=== PATIENT | male | born 1960 | race Asian ===

== ENCOUNTER 2019-04-03 08:39 | Day surgery (SDC) | payer OTHER ==
[~2019-04-03] VITALS: Ht 160 cm; Wt 67.1 kg
[2019-04-03] VITALS (10 sets, daily range): BP systolic 116–138; BP diastolic 64–80
[~2019-04-03 08:39] MED LIST: LR 1000ml 1,000 ML IVLG SCH
--- NOTE | 2019-04-03 08:45 | Anethesia Preoperative Eval ---
Anesthesia Pre-op PMH/ROS General Date of Evaluation: Apr 03, 2019 Time of Evaluation: 08:45 Anesthesiologist: rubio ASA Score: ASA 2 Mallampati Score Class I : Soft palate, uvula, fauces, pillars visible Class II: Soft palate, uvula, fauces visible Class III: Soft palate, base of uvula visible Class IV: Only hard plate visible Mallampati Classification: Class II Surgeon: mrery Diagnosis: abdominal pain, colon screening Surgical Procedure: egd/colonoscopy Anesthesia History: none Social History: smoking - nonsmoker Family History: no anesthesia problems Allergies: Coded Allergies: No Known Allergies (Unverified , 04/03/19) Medications: see eMAR Patient NPO?: Yes Past Medical History Gastrointestinal/Genitourinary: Reports: GERD Musculoskeletal/Integumentary: Reports: other - joint pain PSxH Narrative: breast sx Anesthesia Pre-op Phys. Exam Physician Exam Last Vital Signs Date Time Temp Pulse Resp B/P (MAP) Pulse Ox O2 Delivery O2 Flow Rate FiO2 04/03/19 09:28 Room Air 04/03/19 09:14 97.8 63 18 135/68 99 Constitutional: NAD Neurologic: CN 2-12 intact Cardiovascular: RRR Respiratory: CTA Gastrointestinal: S/NT/ND Airway Exam Mallampati Score: Class II MO: limited Neck: flexible TMD: 2fb ROM: limited Anesthesia Pre-op A/P Risk Assessment & Plan Assessment: asa2 Plan: mac Status Change Before Surgery: No Pre-Antibiotics Drug: Allyson Echeverria MD Apr 03, 2019 08:45
[2019-04-03] MEDS ORDERED: NKM (09:35)
[2019-04-03] MEDS ORDERED: LR 1000ml 1,000 ML IVLG SCH (09:57)
[2019-04-03] MEDS ORDERED: Propofol 200mg/20ml IV ONE (10:00)
[2019-04-03] MEDS ORDERED: Lidocaine 1% MPF 10mg/ml 5ml ONE (10:00)
[2019-04-03] MEDS ORDERED: LR 1000ml ONE (10:00)
[2019-04-03] MEDS ORDERED: DiphenhydrAMINE 50mg/ml Inj IVP PRN (10:00)
[2019-04-03] MEDS ORDERED: Atropine Inj 1mg/10ml Syr IV PRN (10:00)
[2019-04-03] MEDS ORDERED: Midazolam 2mg/2ml Inj IVP PRN (10:00)
[2019-04-03] MEDS ORDERED: fentaNYL 100 mcg/2 mL IV PRN (10:00)
--- NOTE | 2019-04-03 10:03 | Pre-Procedure Note/Attestation ---
Pre-Procedure Note/Attestation Complete Prior to Procedure Planned Procedure: not applicable Procedure Narrative: esophagogastroduodenoscopy and colonoscopy Indications for Procedure Pre-Operative Diagnosis: screening colon, GERD Attestation I attest that I discussed the nature of the procedure; its benefits; risks and complications; and alternatives (and the risks and benefits of such alternatives ), prior to the procedure, with the patient (or the patient's legal medical service representative). I attest that, if there was a reasonable possibility of needing a blood transfusion, the patient (or the patient's legal medical service representative) was given the [facility] standardized written summary, pursuant to the [place] Blood Safety Act ([place] Health and Safety Code # 1645, as amended). I attest that I re-evaluated the patient just prior to the surgery and that there has been no change in the patient's H&P, except as documented below: Ghulam Marmolejo MD Apr 03, 2019 10:03
--- NOTE | 2019-04-03 10:04 | Short Stay Surgery H&P ---
History of Present Illness History of Present Illness Chief Complaint screening colon, GERD HPI Christos Anne is a 58 year old male who was admitted on for Abdominal Pain, Colon Screening Patient History Allergies: Coded Allergies: No Known Allergies (Unverified , 04/03/19) PAST MEDICAL HISTORY: (1) GERD (gastroesophageal reflux disease) Medication History Scheduled No Known Medications* (NKM - No Known Medications*), 0 ., (Reported) Review of Systems Cardiovascular: Reports: no symptoms Respiratory: Reports: no symptoms Skeletal: Reports: no symptoms Gastrointestinal: Reports: no symptoms Genitourinary: Reports: no symptoms Neurologic: Reports: no symptoms Endocrine: Reports: no symptoms Hematologic: Reports: no symptoms Physical Exam Vital Signs Last Vital Signs Date Time Temp Pulse Resp B/P (MAP) Pulse Ox O2 Delivery O2 Flow Rate FiO2 04/03/19 09:28 Room Air 04/03/19 09:14 97.8 63 18 135/68 99 Skin: normal HENT: normal Heart: normal Lungs: normal Abdomen: normal Extremities: normal Plan Plan of Care esophagogastroduodenoscopy and colonoscopy Attestation Are the patient's medical conditions optimized for surgery? Attestation Response: yes Ghulam Marmolejo MD Apr 03, 2019 10:04
--- NOTE | 2019-04-03 10:37 | Endoscopy Procedure Note ---
Endoscopy Procedure Note General Indication for Procedure: screening colon, GERD Procedures Performed: EGD, colonoscopy Operative Findings/Diagnosis: colon polyp, gastrtiis Specimen: yes Pt Tolerated Procedure Well: Yes Estimated Blood Loss: none Anesthesia Anesthesiologist: janiya Anesthesia: MAC Inserted Devices Implant(s) used?: No Quality Quality of Bowel Preparation: Good Did scope reach the cecum?: Yes Was there any complications?: No GI Core Measures 50 yrs or older w/o bx or poly: No 10yrs. F/U recommended: Yes If not recommended, why?: Above average risk 18 years or older w/prev. colo: No Ghulam Marmolejo MD Apr 03, 2019 10:37
--- NOTE | 2019-04-03 10:53 | Immediate Post-Op Evaluation ---
Immediate Post-Op Evalulation Immediate Post-Op Evalulation Procedure: egd/colonoscopy w/bx Date of Evaluation: Apr 03, 2019 Time of Evaluation: 10:52 IV Fluids: 500ml lr Blood Products: none Estimated Blood Loss: negligible Blood Pressure Systolic: 116 Blood Pressure Diastolic: 74 Pulse Rate: 54 Respiratory Rate: 18 O2 Sat by Pulse Oximetry: 100 Temperature (Fahrenheit): 97.7 Pain Score (1-10): 0 Nausea: No Vomiting: No Complications none Patient Status: awake, reacts, patent Hydration Status: adequate Drug: Allyson Echeverria MD Apr 03, 2019 10:53
--- NOTE | 2019-04-03 10:55 | 48 Hour Post Anesthesia Eval ---
Post Anesthesia Evaluation Procedure: egd/colonoscopy w/bx Date of Evaluation: Apr 03, 2019 Time of Evaluation: 10:54 Blood Pressure Systolic: 118 0: 76 Pulse Rate: 63 Respiratory Rate: 18 Temperature (Fahrenheit): 97.9 O2 Sat by Pulse Oximetry: 100 Airway: patent Nausea: No Vomiting: No Pain Intensity: 0 Hydration Status: adequate Cardiopulmonary Status: stable Mental Status/LOC: patient returned to baseline Post-Anesthesia Complications: none Follow-up care needed: N/A Allyson Sweet MD Apr 03, 2019 10:55
--- NOTE | 2019-04-03 16:15 | Procedure Note ---
DATE OF PROCEDURE: 04/03/2019 SURGEON: Ghulam Marmolejo M.D. PROCEDURE: Upper endoscopy with biopsy and colonoscopy with biopsy. ANESTHESIA: Per Dr. Wells. INSTRUMENT: Olympus adult flexible upper endoscope and colonoscope. INDICATION: 1. Screening colonoscopy evaluation. 2. Chronic GERD. REASON FOR PROCEDURE: The procedure, risks, benefits, and possible consequences, including hemorrhage, aspiration, perforation and infection, and alternative treatments, were explained to the patient/legal guardian by Dr. Ghulam Marmolejo and the patient/legal guardian understood and accepted these risks. PROCEDURE IN DETAIL: After informed consent was obtained and the patient was adequately sedated, Olympus upper endoscope was advanced from the mouth into second portion of duodenum and retroflexion was performed in the stomach. GE junction was found to be about 35 cm from the incisors. There was no any evidence of any esophagitis or esophageal mass. In the stomach, there was diffuse gastritis. Random biopsies from antrum and body was obtained to rule out H. pylori infection. Also, the patient had a small polyp or nodule in the prepyloric region at about 7 o'clock position. This was removed with cold biopsy forceps technique. At this time, the upper endoscope was retrieved and the patient was turned over for colonoscopy. First, rectal exam was performed, which was normal. Then, the scope was the advanced from the rectum into cecum documented by appendiceal orifice, ileocecal valve, and right upper quadrant palpation. Then scope subsequent was passed into the terminal ileum. The quality of prep was good. The patient had one polyp in the cecum measured roughly about 3 mm, removed with cold biopsy forceps technique. There was 1 or 2 scattered diverticula in the ascending colon. There was no further polyp seen in this colonoscopy examination. No obvious mass was seen. Retroflexion of rectum showed evidence of small nonbleeding internal hemorrhoids. SUMMARY OF FINDINGS: 1. Gastritis, status post biopsy. 2. One gastric nodule/polyp was removed, see above for details. 3. One colonic polyp. 4. Diverticulosis in the right colon. 5. Internal hemorrhoids. RECOMMENDATIONS: 1. Follow up pathology and treat accordingly. 2. We recommend repeat colonoscopy in 5 years. Ghulam Harry Marmolejo DR: Gold JOB#: [id number] CC:
== END 2019-04-03 12:05 | disposition home or self-care (01) ==
LOC: GAS 08:39
DX: Z12.11 Encounter for screening for malignant neoplasm of colon (principal); K21.9 Gastro-esophageal reflux disease without esophagitis; K63.5 Polyp of colon; K31.7 Polyp of stomach and duodenum; K57.90 Diverticulosis of intestine, part unspecified, without perforation or abscess without bleeding; K64.8 Other hemorrhoids
CPT/HCPCS: 43239; 45380; J2704; J7120; 94003; 94150